=== PATIENT | female | born 1965 | race Caucasian/White ===

== ENCOUNTER 2020-03-22 14:22 | Emergency (ER) | payer BC, SELFPAY ==
[2020-03-22 14:45] VITALS: BP 170/80; PULSE 117; RESP 16; TEMP 37.2; O2SAT 98; BMI 28.3
--- NOTE | 2020-03-22 14:57 | XR_ITS ---
EXAMINATION: XR CHEST CLINICAL INFORMATION: Chest pain COMPARISON: None TECHNIQUE: Frontal view of the chest was obtained. FINDINGS: The lungs are well expanded. There is no focal consolidation, edema, or effusion. No pneumothorax. The cardiomediastinal silhouette is within normal limits. No acute osseous abnormality. XR/XR chest 1V IMPRESSION: No acute pulmonary finding.
--- NOTE | 2020-03-22 14:57 | ECG_ITS ---
Test Reason : CP Blood Pressure : / mmHG Vent. Rate : 117 BPM Atrial Rate : 117 BPM P-R Int : 152 ms QRS Dur : 086 ms QT Int : 334 ms P-R-T Axes : 069 079 036 degrees QTc Int : 465 ms Sinus tachycardia Possible Left atrial enlargement Nonspecific ST abnormality Abnormal ECG No previous ECGs available Referred By: Generic ED Physician Electronically Signed By:Darwin Aldana
[2020-03-22 15:43] LABS: MANUAL DIFF FLAG NO
[2020-03-22 15:44] LABS: Basophils Percent Auto 0.3 % (0-2); Eosinophils Absolute Auto 0.2 X10*3/uL (0.0-0.4); Hematocrit 42.5 % (37-47); Hemoglobin 14.9 g/dl (12.0-16.0); Imm Gran Abs Auto 0.02 X10*3/uL (0.00-0.03); Imm Gran Pct Auto 0.3 % (0.0-0.4); Lymphocytes Absolute Auto 2.5 X10*3/uL (1.2-4.9); Mean Corpuscular HGB Conc 35.1 g/dl (31.0-35.0); Mean Corpuscular Hemoglobin 31.6 pg (27.0-33.0); Mean Corpuscular Volume 90.2 fL (80-98); Mean Platelet Volume 8.4 fL (9.4-12.3); Monocytes Absolute Auto 0.5 X10*3/uL (0.1-1.2); Monocytes Percent Auto 6.6 % (2-11); Neutrophils Absolute Auto 4.3 X10*3/uL (2.0-8.3); Neutrophils Percent Auto 57.8 % (45-73); Platelet Count 429 X10*3/uL (160-400); Red Blood Count 4.71 X10*6/uL (4.20-5.50); Red Cell Distribution Width 11.8 % (11.0-16.0); White Blood Count 7.5 X10*3/uL (4.8-10.8)
--- NOTE | 2020-03-22 15:54 | ED_ITS ---
HPI - Chest Pain General Chief Complaint: Chest Pain Stated Complaint: heart palpitations,chest pain Time Seen by Provider: 03/22/20 15:47 Source: patient Mode of arrival: ambulatory Limitations: no limitations History of Present Illness HPI narrative: patient comes to the ER complaining of palpitations and chest pr essure for the last 24 hours. Patient states initially she does she was having a panic attack, she took 1 mg of Ativan hoping that her symptoms would resolve, however they are still present. Patient states she still has active pressure and palpitations. No chest pain. Patient denies sweating, no chest discomfort or radiation. Patient reports 1 episode of diarrhea last night. No upper respiratory symptoms. MD complaint: chest discomfort and other (Palpitations) Related Data Allergies Allergy/AdvReac Type Severity Reaction Status Date / Time oxycodone Allergy Nausea Verified 03/22/20 14:49 Review of Systems Review of Systems: Constitutional : No Weight loss, No Fever, No Chills, No Night Sweats, No Fatigue, No Malaise ENT/Mouth : No Hearing loss, No Ear Pain, No Nasal Congestion, No Sinus Pain, No Hoarseness, No sore throat, No Rhinorrhea, No Swallowing Difficulty Eyes: No Eye Pain, No Swelling, No Redness, No Foreign Body, No Discharge, No Vision Changes Cardiovascular : Complaining of steady mild substernal chest pressure No SOB, No Dyspnea on Exertion, No Orthopnea, No Edema, complaining of Palpitations Respiratory : No Cough, No Sputum, No Wheezing, No Smoke Exposure, No Dyspnea Gastrointestinal : No Nausea, No Vomiting, No Diarrhea, No Constipation, No abdominal Pain, No Hematochezia, No Melena Genitourinary : no irregular bleeding, No Dysuria, No Urinary Frequency, No Hematuria, No Urinary Incontinence, No Urgency, No Flank Pain, No Urinary Flow Changes, No Hesitancy Musculoskeletal : No joint pain, No Myalgias, No Joint Swelling Skin : No Skin Lesions, No rash Neuro : No Weakness, No Numbness, No Paresthesias, No Loss of Consciousness, No Dizziness, No Headache Psych : No Anxiety/Panic, No Depression, No SI/HI/AH/VH, No Social Issues, Heme/Lymph: No Bruising, No Bleeding,No Lymphadenopathy Endocrine : No Polyuria, No Polydipsia, No Temperature Intolerance [facility], LAT[facility] Past Medical History Medical History (Updated 03/23/20 @ 00:21 by Lou Barton MD) Anxiety Hypertension Social History Social History Alcohol intake: never Smoking Status: Never smoker Use of substances other than those prescribed or required for medical reasons: No Advance Directives: No Advance Directives Information Provided: Yes Physical Exam Vital Signs: Vital Signs: Last Vital Signs Temp 98.5 F 03/22/20 16:41 Pulse 69 03/22/20 23:32 Resp 18 03/22/20 23:32 BP 127/66 03/22/20 23:32 Pulse Ox 97 03/22/20 23:32 Body Mass Index 28.3 Appearance: Alert. Oriented X3. No acute distress. Eyes: Pupils equal, round and reactive to light. ENT: Pharynx normal. Neck: Normal inspection. Neck supple. No lymph nodes noted. No crepitus CVS: Tachycardic, heart rate approximately 110. Pulses normal. Normal S1 and S2 Respiratory: No respiratory distress. Breath sounds normal. No Wheezing. No rales Abdomen: Soft and nontender. No rigidity. No distention. good BS x4 Skin: Skin warm and dry. Normal skin color. Normal skin turgor. Extremities: No lower extremity edema. No lower extremity edema. No La cerations. No Rash Neuro: Oriented X 3. No motor deficit. No sensory deficit. Moving all extermities. No slurred speech. Course Course Course Narrative: Patient's troponin went from 5.8-17.1. At this time, patient states that she feels much better, no longer however palpitations, the chest discomfort is nearly resolved. Patient's blood pressure is 130/46, heart rate 77. I discussed the change in troponin with Dr. Aldana, in 3 more hours, we are going to get a 3rd troponin. I discussed the plan with the patient, agrees to stay for 3rd troponin. Patient's 3rd troponin is 13.2. Patient is completely asymptomatic. Vitals on discharge heart rate 69, blood pressure 127/66, oxygen saturation 97%, patient asymptomatic. Patient will follow-up with Dr. Aldana. Patient did not receive any medication to control the rate or blood pressure, only normal saline at this time, we will not start any medications for rate control. MDM - Chest Pain Lab Data Result diagrams: 03/22/20 16:20 03/22/20 16:20 Labs: Lab Results 03/22/20 03/22/20 03/22/20 Range/Units 15:36 15:36 15:36 WBC 7.5 (4.8-10.8) X10*3/uL RBC 4.71 (4.20-5.50) X10*6/uL Hgb 14.9 (12.0-16.0) g/dl Hct 42.5 (37-47) % MCV 90.2 (80-98) fL MCH 31.6 (27.0-33.0) pg MCHC 35.1 H (31.0-35.0) g/dl RDW 11.8 (11.0-16.0) % Plt Count 429 H (160-400) X10*3/uL MPV 8.4 L (9.4-12.3) fL Immature Gran % (Auto) 0.3 (0.0-0.4) % Neut % (Auto) 57.8 (45-73) % Lymph % (Auto) 33.0 (20-40) % Weak[place] % (Auto) 6.6 (2-11) % Eos % (Auto) 2.0 (0-4) % Baso % (Auto) 0.3 (0-2) % Lymph # (Auto) 2.5 (1.2-4.9) X10*3/uL Weakley # (Auto) 0.5 (0.1-1.2) X10*3/uL Eos # (Auto) 0.2 (0.0-0.4) X10*3/uL Baso # (Auto) 0.0 (0.0-0.2) X10*3/uL Abs Immat Gran (auto) 0.02 (0.00-0.03) X10*3/uL Absolute Neuts (auto) 4.3 (2.0-8.3) X10*3/uL Absolute Nucleated RBC 0.000 (0.0-0.012) X10*3/uL Nucleated RBC % (auto) 0.0 (0.0-0.2) /100WBC Smear Tech's Comments Hold Blue Top SEE NOTE Sodium 135 (135-145) mmol/L Potassium 3.5 (3.3-5.1) mmol/l Chloride 99 (96-108) mmol/L Carbon Dioxide 25 (22-29) mmol/L Anion Gap 15 (12-20) BUN 10 (9-16) mg/dL Creatinine 0.77 (0.5-1.4) mg/dL Estim Creat Clear Calc 83.7 Estimated GFR > 60 Random Glucose 129 H (60-115) mg/dL Calcium 10.0 (8.4-10.2) mg/dL Troponin I High Sens (<3.5-17.0) ng/L TSH (0.32-4.0) mIU/mL 03/22/20 03/22/20 03/22/20 Range/Units 15:36 16:20 16:20 WBC 7.2 (4.8-10.8) X10*3/uL RBC 4.70 (4.20-5.50) X10*6/uL Hgb 14.8 (12.0-16.0) g/dl Hct 42.6 (37-47) % MCV 90.6 (80-98) fL MCH 31.5 (27.0-33.0) pg MCHC 34.7 (31.0-35.0) g/dl RDW 11.8 (11.0-16.0) % Plt Count TNP (160-400) X10*3/uL MPV Not Reportable (9.4-12.3) fL Immature Gran % (Auto) 0.3 (0.0-0.4) % Neut % (Auto) 58.1 (45-73) % Lymph % (Auto) 33.0 (20-40) % Weakley % (Auto) 6.1 (2-11) % Eos % (Auto) 2.1 (0-4) % Baso % (Auto) 0.4 (0-2) % Lymph # (Auto) 2.4 (1.2-4.9) X10*3/uL Weakley # (Auto) 0.4 (0.1-1.2) X10*3/uL Eos # (Auto) 0.2 (0.0-0.4) X10*3/uL Baso # (Auto) 0.0 (0.0-0.2) X10*3/uL Abs Immat Gran (auto) 0.02 (0.00-0.03) X10*3/uL Absolute Neuts (auto) 4.2 (2.0-8.3) X10*3/uL Absolute Nucleated RBC 0.000 (0.0-0.012) X10*3/uL Nucleated RBC % (auto) 0.0 (0.0-0.2) /100WBC Smear Tech's Comments VERIFIED Hold Blue Top Sodium 137 (135-145) mmol/L Potassium 3.7 (3.3-5.1) mmol/l Chloride 100 (96-108) mmol/L Carbon Dioxide 25 (22-29) mmol/L Anion Gap 16 (12-20) BUN 11 (9-16) mg/dL Creatinine 0.75 (0.5-1.4) mg/dL Estim Creat Clear Calc 85.9 Estimated GFR > 60 Random Glucose 109 (60-115) mg/dL Calcium 9.8 (8.4-10.2) mg/dL Troponin I High Sens 5.6 (<3.5-17.0) ng/L TSH 1.94 (0.32-4.0) mIU/mL 03/22/20 03/22/20 03/22/20 Range/Units 16:20 18:48 22:15 WBC (4.8-10.8) X10*3/uL RBC (4.20-5.50) X10*6/uL Hgb (12.0-16.0) g/dl Hct (37-47) % MCV (80-98) fL MCH (27.0-33.0) pg MCHC (31.0-35.0) g/dl RDW (11.0-16.0) % Plt Count (160-400) X10*3/uL MPV (9.4-12.3) fL Immature Gran % (Auto) (0.0-0.4) % Neut % (Auto) (45-73) % Lymph % (Auto) (20-40) % Weakley % (Auto) (2-11) % Eos % (Auto) (0-4) % Baso % (Auto) (0-2) % Lymph # (Auto) (1.2-4.9) X10*3/uL Weakley # (Auto) (0.1-1.2) X10*3/uL Eos # (Auto) (0.0-0.4) X10*3/uL Baso # (Auto) (0.0-0.2) X10*3/uL Abs Immat Gran (auto) (0.00-0.03) X10*3/uL Absolute Neuts (auto) (2.0-8.3) X10*3/uL Absolute Nucleated RBC (0.0-0.012) X10*3/uL Nucleated RBC % (auto) (0.0-0.2) /100WBC Smear Tech's Comments Hold Blue Top Sodium (135-145) mmol/L Potassium (3.3-5.1) mmol/l Chloride (96-108) mmol/L Carbon Dioxide (22-29) mmol/L Anion Gap (12-20) BUN (9-16) mg/dL Creatinine (0.5-1.4) mg/dL Estim Creat Clear Calc Estimated GFR Random Glucose (60-115) mg/dL Calcium (8.4-10.2) mg/dL Troponin I High Sens 8.6 D 17.1 H D 13.2 (<3.5-17.0) ng/L TSH (0.32-4.0) mIU/mL ECG Data ECG #1: Attestation: I personally reviewed and interpreted this ECG as follows: (Sinus rhythm, tachycardia, heart rate 117, QTC 465, nonspecific ST abnormalities in all leads) Discharge Plan Discharge Clinical Impression: Heart palpitations, Chest discomfort Patient Disposition: Home, Self-Care Instructions: Heart Palpitations (ED) Additional Instructions: Please follow-up with your primary care physician tomorrow. If you have any worsening or new symptoms, please return to the emergency room or call 911 Referrals: Darwin Aldana MD [Physician] - 1 day Stand Alone Forms: Work/School Release
[2020-03-22 16:09] LABS: Anion Gap 15 (12-20); Blood Urea Nitrogen 10 mg/dL (9-16); Carbon Dioxide 25 mmol/L (22-29); Chloride 99 mmol/L (96-108); Creatinine Clr Calc Pharmacy 83.7; Estimated Glomerular Filt Rate > 60; Glucose Random 129 mg/dL (60-115); Potassium 3.5 mmol/l (3.3-5.1); Sodium 135 mmol/L (135-145)
[2020-03-22 16:15] LABS: Troponin-I High Sensitivity 5.6 ng/L (<3.5-17.0)
[2020-03-22 16:29] LABS: Basophils Percent Auto 0.4 % (0-2); Imm Gran Abs Auto 0.02 X10*3/uL (0.00-0.03); Imm Gran Pct Auto 0.3 % (0.0-0.4); Lymphocytes Absolute Auto 2.4 X10*3/uL (1.2-4.9); MANUAL DIFF FLAG SCAN; Neutrophils Percent Auto 58.1 % (45-73); PLT CLUMP 1; SCAN SMEAR FLAG 1
[2020-03-22 16:31] LABS: Eosinophils Absolute Auto 0.2 X10*3/uL (0.0-0.4); Eosinophils Percent Auto 2.1 % (0-4); Hematocrit 42.6 % (37-47); Hemoglobin 14.8 g/dl (12.0-16.0); Mean Corpuscular HGB Conc 34.7 g/dl (31.0-35.0); Mean Corpuscular Hemoglobin 31.5 pg (27.0-33.0); Mean Corpuscular Volume 90.6 fL (80-98); Monocytes Absolute Auto 0.4 X10*3/uL (0.1-1.2); Monocytes Percent Auto 6.1 % (2-11); Neutrophils Absolute Auto 4.2 X10*3/uL (2.0-8.3); Red Cell Distribution Width 11.8 % (11.0-16.0); White Blood Count 7.2 X10*3/uL (4.8-10.8)
[2020-03-22 16:41] VITALS: BP 128/73; PULSE 92; RESP 14; TEMP 36.9; O2SAT 96
[2020-03-22 16:50] LABS: SLIDE REVIEW VERIFIED
[2020-03-22 16:51] LABS: Anion Gap 16 (12-20); Blood Urea Nitrogen 11 mg/dL (9-16); Calcium 9.8 mg/dL (8.4-10.2); Carbon Dioxide 25 mmol/L (22-29); Chloride 100 mmol/L (96-108); Creatinine Clr Calc Pharmacy 85.9; Estimated Glomerular Filt Rate > 60; Glucose Random 109 mg/dL (60-115); Potassium 3.7 mmol/l (3.3-5.1); Sodium 137 mmol/L (135-145)
[2020-03-22 17:04] LABS: Troponin-I High Sensitivity 8.6 ng/L (<3.5-17.0)
[2020-03-22 17:12] LABS: TSH reflex Free T4 1.94 mIU/mL (0.32-4.0)
[2020-03-22] MEDS: 0.9 % Sodium Chloride 1,000 ML 999 ML IVCONT (17:18)
[2020-03-22 19:04] VITALS: BP 130/46; PULSE 77; RESP 16; O2SAT 98
[2020-03-22 19:44] LABS: Troponin-I High Sensitivity 17.1 ng/L (<3.5-17.0)
[2020-03-22] MEDS: Aspirin Enteric Coated 325 MG TABLET.DR PO (21:27)
[2020-03-22 21:28] VITALS: BP 127/70; PULSE 74; RESP 16; O2SAT 97
[2020-03-22 22:00] VITALS: BP 128/64; PULSE 69; RESP 18; O2SAT 98
[2020-03-22 22:58] LABS: Troponin-I High Sensitivity 13.2 ng/L (<3.5-17.0)
[2020-03-22 23:32] VITALS: BP 127/66; PULSE 69; RESP 18; O2SAT 97
[2020-03-23] VITALS: BP 124/72; PULSE 82; RESP 16; O2SAT 98
== END 2020-03-23 01:43 | disposition home or self-care (01) ==
PROVIDERS: Emergency Provider Emergency Medicine; PCP Nurse Practitioner Family
DX: R07.89 Other chest pain (principal); R00.2 Palpitations; I10 Essential (primary) hypertension
CPT/HCPCS: 36415; 71045; 80048; 84443; 84484; 85025; 93005; 96360; 99284; 99285

== ENCOUNTER → 2020-03-29 13:04 | Outpatient (BNVA) | payer BC, SELFPAY | PROVIDERS: Visit Provider Nurse Practitioner Family ==

== ENCOUNTER → 2020-04-06 10:49 | Outpatient (REF) | payer BC, SELFPAY ==
--- NOTE | 2020-04-06 10:54 | CA_ITS ---
Acquisition Time: 2020-04-06 11:32:16 Total Exercise Time: 00:07:02 Test Indications: Z01.810 Medications: SEE CHART Protocol: HERSON Max HR: 160 BPM 97% of Pred: 164 BPM Max BP: 180/074 mmHG Max Work Load: 8.6 METS Exercise stress ECHO using Herson protocol. Total of 7 min 2 sec. METS 8.60 and TAPHR up to 97%. . Pt tolerated well, denies any anginal sx. EKG with no arrhythmias, no ischemic changes seen during xercise or in recovery. EHO images taken at rest and immediately after peak exercise HR reached. Hypertensive response to exercise up to 180/74, normalized in recovery. Definity contrast used. Test reviewed with Dr. Brewer. STRESS ECHO : Technique : Images were obtained at rest and immediately post exercise within 1 minute Definity contrast was used to enhance endocardial definition Images were obtained in multiple views and compared side to side. Findings : Images at rest are of good quality. LV systolic function is normal with normal wall motion. Immediately post exercise images are of borderline quality. Thre is overall good augmentation of LV systolic function with normal wall motion. Conclusion : Stress echo negative for ischemia Referred By: Jackie Resendiz Overread By: DALY BREWER MD
== END ==
LOC: HO.CARD 10:49
PROVIDERS: PCP Nurse Practitioner Family; Visit Provider Nurse Practitioner Family
DX: Z01.818 Encounter for other preprocedural examination (principal); R07.9 Chest pain, unspecified; I10 Essential (primary) hypertension
CPT/HCPCS: 93350; Q9957

== ENCOUNTER → 2020-04-11 09:36 | Outpatient (BNVA) | payer BC, SELFPAY | PROVIDERS: PCP Nurse Practitioner Family; Visit Provider Nurse Practitioner Family | DX: Z01.810 Encounter for preprocedural cardiovascular examination (principal); R00.2 Palpitations; R00.0 Tachycardia, unspecified; I10 Essential (primary) hypertension; R07.9 Chest pain, unspecified | CPT/HCPCS: 93005 ==

== ENCOUNTER → 2020-06-28 08:21 | Outpatient (REF) | payer BC, SELFPAY ==
--- NOTE | 2020-06-28 08:24 | CA_ITS ---
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 The visually estimated ejection fraction is between 65-70%. - No obvious valvular pathology seen on this study. Findings Left Ventricle Normal left ventricular cavity size. There is normal left ventricular wall thickness. The left ventricular systolic function is normal. The visually estimated ejection fraction is between 65-70%. There is no evidence of regional wall motion abnormalities. E/E prime ratio is between 8 and 15 consistent with indeterminate filling pressures. Evidence suggests grade I (mild) diastolic dysfunction. Right Ventricle Normal right ventricular cavity size and systolic function. Atria Both atria are normal in size. Aortic Valve There is a normal trileaflet aortic valve. There is no aortic valve stenosis. There is no aortic valve regurgitation. Mitral Valve The mitral valve appears normal. There is no mitral valve regurgitation. There is no mitral valve stenosis. Pulmonic Valve The pulmonic valve was not well visualized. There is trace pulmonic valve regurgitation. Tricuspid Valve Normal tricuspid valve structure. There is trace tricuspid valve regurgitation. The pulmonary artery systolic pressure is normal. Great Vessels The aortic annulus, sinuses of valsalva, asc aorta, and aortic arch are normal in size. Venous The inferior vena cava is normal in size and collapses greater than 50% with inspiration. Pericardium/Pleural There is no evidence of pericardial effusion. Prior Study Comparison No prior study available for comparison. Recommendations, Care & Conclusions No obvious valvular pathology seen on this study. Measurements M-Mode Liner Measurements Normals - Women/Men AOV Cusps: 2.20 1.5-2.6 cm/m2 2D Linear Measurements IVSd: 0.81 0.6-0.9/0.6-1.0 cm LVIDd: 4.25 3.9-5.3/4.2-5.9 cm LVIDd Index: 2.23 2.4-3.2/2.2-3.1 cm/m2 LVIDs: 2.43 2.0-3.6 cm LVPWd: 0.80 0.7-1.1 cm Ao Root: 2.70 2.1-3.5 cm LA Diam: 3.60 2.7-3.8/3.0-4.0 cm LAIDs Index: 1.88 1.5-2.3 cm/m2 LV Mass: 129.01 67-162/88-224 g LV Mass Index: 67.55 43-95/49-115 g/m2 LVOT Diam: 2.20 3.0+(-)1.3 cm 2D Systolic Function EF 4C: 68.10 >55% EF 2C: 69.50 >55% EF BiP: 69.50 >55% Mitral Valve MV Pk E: 0.87 MV PK A: 0.83 MV Decel Time: 275.00 E/A: 1.10 E'Lateral: 7.94 E'Medial: 6.09 E/E' Med: 14.30 E/E' Lat: 11.00 PHT: 80.00 MVA PHT: 2.75 Decel [place]: 3.18 Aortic Valve AoV Pk Nick: 1.48 AoV Mn Nick: 1.02 AoV VTI: 0.30 AoV Pk Grad: 9.00 Aov Mn Grad: 5.00 MELONIE Cont.VTI: 2.86 LVOT LVOT Pk Nick: 0.96 LVOT Mn Nick: 0.76 LVOT VTI: 0.22 LVOT Pk Grad: 4.00 LVOT Mn Grad: 3.00 LVOT Diam: 2.20 LVOT Area: 3.80 Diastolic Function MV Pk E: 0.87 MV Pk A: 0.83 E/A: 1.10 E'Medial: 6.09 E/E' Med: 14.30 E' Laterial: 7.94 E/E' Lat: 11.00 Tricuspid Valve RA Press: 3.00 Great Vessels Aorta Ao Root-2D: 2.70 2.0-3.7 cm Ao Asc: 3.00 2.1-3.4 cm Ao Arch: 2.20 Pulmonary Valve PV Pk Nick: 1.30 Peak PV Grad: 7.00 Updated in Other Vendor System with Status of Final Jason Vang MD electronically signed on 06/30/2020 1:43:46 PM with status of Final
== END ==
LOC: HO.CARD 08:21
PROVIDERS: PCP Nurse Practitioner Family; Visit Provider Nurse Practitioner Family
DX: I10 Essential (primary) hypertension (principal)
CPT/HCPCS: 93306